=== PATIENT | male | born 1950 | race Caucasian/White ===

== ENCOUNTER 2018-05-14 18:15 | Inpatient (IN) ==
[2018-05-14 18:57] LABS: Basophils # 0.1 10*3/uL (0.0-0.2); Basophils % 0.4 % (0.0-0.8); Eosinophils # 0.2 10*3/uL (0.0-0.87); Eosinophils % 1.7 % (0.00-10.9); Hematocrit 46.8 VOL% (42.0-52.0); Hemoglobin 15.4 GM/DL (14.0-18.0); Immature Granulocytes % 0.4 %; Immature Granulocytes Absolute 0.06 #; Lymphocytes # 2.9 10*3/uL (1.4-4.0); Lymphocytes % 21.4 % (21.2-54.2); Mean Corpuscular HGB Conc 32.9 GM/DL (32-36); Mean Corpuscular Hemoglobin 28 PG (27-34); Mean Corpuscular Volume 85.4 FL (87-102); Mean Platelet Volume 10.5 FL (9.6-12.0); Monocytes # 1.1 10*3/uL (0.11-0.8); Monocytes % 7.8 % (1.7-12.7); Neutrophils # 9.4 10*3/uL (1.4-7.4); Neutrophils % 68.3 % (38.7-73.9); Platelet Count 363 T/CUMM (130-400); Red Blood Count 5.48 MC/CUMM (3.8-5.5); Red Cell Distribution Width 13.3 % (9.3-17.3); White Blood Count 13.7 T/CUMM (4-12)
[2018-05-14 19:05] LABS: INR 0.9; Partial Thromboplastin Time 26.4 SECS (0-40)
[2018-05-14 19:09] LABS: Alanine Aminotransferase 30 U/L (16-61); Albumin 3.8 G/DL (3.4-5.0); Alkaline Phosphatase 102 U/L (45-117); Aspartate Amino Transferase 14 U/L (0-37); Bilirubin,Total < 0.39 MG/DL (0.2-1.0); Blood Urea Nitrogen 27 MG/DL (7-18); Calcium 9.3 MG/DL (8.5-10.1); Glucose 240 MG/DL (74-106); Osmolality,Calculated 293.3 MOS/KG (273-304); Potassium 4.1 MMOL/L (3.5-5.1); Sodium 141 MMOL/L (136-145); Total Protein 7.9 G/DL (6.4-8.3)
[2018-05-14] MEDS ORDERED: ASPIRIN CHEW 81 MG TABLET PO STA (19:19)
[2018-05-14] MEDS ORDERED: ENOXAPARIN 30 MG/0.3 ML SYRINGE SUBCUT STA (19:19)
[2018-05-14] MEDS ORDERED: diphenhydrAMINE CAP 25 MG CAPSULE PO PRN (19:40)
[2018-05-14] MEDS ORDERED: NICOTINE 21 MG/24 HR PATCH TRANSDERM PRN (19:40)
[2018-05-14] MEDS ORDERED: ONDANSETRON 4 MG/2 ML VIAL IV PRN (19:40)
[2018-05-14] MEDS ORDERED: MORPHINE 4 MG/1 ML VIAL IV PRN (19:40)
[2018-05-14] MEDS ORDERED: ACETAMINOPHEN 325 MG TABLET PO PRN (19:40)
[2018-05-14] MEDS ORDERED: BISACODYL 5 MG TABLET PO PRN (19:40)
[2018-05-14 20:10] LABS: VLDL CHOLESTEROL 48.8 MG/DL
[2018-05-14] MEDS ORDERED: ENOXAPARIN 40 MG/0.4 ML SYRINGE ONE (20:38)
[2018-05-14] MEDS ORDERED: GLUCAGON 1 MG VIAL IM PRN (20:50)
[2018-05-14] MEDS ORDERED: DEXTROSE 50% 25 GM/50 ML VIAL IV PRN (20:50)
[2018-05-15] MEDS: INSULIN REGULAR 100 UNIT/ML SUBCUT SCH ×7 (00:49→21:07)
[2018-05-15] MEDS: INSULIN GLARGINE 100 UNIT/ML SUBCUT SCH ×2 (01:26→20:54)
[2018-05-15 03:04] LABS: Apearance,Urine CLEAR (Clear); Bilirubin,Urine Negative (Negative); Blood, Urine Negative (Negative); Glucose,Urine (UA) Negative (Negative); Ketones,Urine Negative (Negative); Mucus,Urine Occasional /LPF (Occasional); Nitrite,Urine Negative (Negative); Protein,Urine Negative; RBC,Urine <1 /HPF (0-4); Squamous Epithelial Cell,Urine Occasional /HPF (0-10); Urine Color Yellow (Yellow); Urine Specific Gravity 1.028 (1.001-1.035); Urine Urobilinogen < 2.0 EU/DL (0.2-1.0); WBC,Urine <1 /HPF (0-6)
[2018-05-15 04:28] LABS: Basophils # 0.1 10*3/uL (0.0-0.2); Basophils % 0.4 % (0.0-0.8); Eosinophils # 0.3 10*3/uL (0.0-0.87); Eosinophils % 2.3 % (0.00-10.9); Hematocrit 43.5 VOL% (42.0-52.0); Hemoglobin 14.1 GM/DL (14.0-18.0); Immature Granulocytes % 0.4 %; Immature Granulocytes Absolute 0.05 #; Lymphocytes # 2.9 10*3/uL (1.4-4.0); Lymphocytes % 22.2 % (21.2-54.2); Mean Corpuscular HGB Conc 32.4 GM/DL (32-36); Mean Corpuscular Hemoglobin 28 PG (27-34); Mean Corpuscular Volume 86.5 FL (87-102); Mean Platelet Volume 10.7 FL (9.6-12.0); Monocytes # 1.2 10*3/uL (0.11-0.8); Monocytes % 9.3 % (1.7-12.7); Neutrophils # 8.4 10*3/uL (1.4-7.4); Neutrophils % 65.4 % (38.7-73.9); Platelet Count 342 T/CUMM (130-400); Red Blood Count 5.03 MC/CUMM (3.8-5.5); Red Cell Distribution Width 13.4 % (9.3-17.3); White Blood Count 12.9 T/CUMM (4-12)
[2018-05-15 04:57] LABS: Albumin 3.3 G/DL (3.4-5.0); Bilirubin,Total 0.8 MG/DL (0.2-1.0); Calcium 8.7 MG/DL (8.5-10.1); Osmolality,Calculated 298.8 MOS/KG (273-304); Potassium 3.8 MMOL/L (3.5-5.1); Total Protein 7.2 G/DL (6.4-8.3)
[2018-05-15] MEDS: LEVOTHYROXINE 200 MCG TABLET PO SCH (06:33)
[2018-05-15] MEDS ORDERED: PANTOPRAZOLE 40 MG TABLET PO SCH (09:00)
[2018-05-15] MEDS ORDERED: ASPIRIN EC 81 MG TABLET PO SCH (09:00)
[2018-05-15] MEDS ORDERED: MELOXICAM 7.5 MG TABLET PO SCH (09:00)
[2018-05-15] MEDS ORDERED: PRAVASTATIN 20 MG TABLET PO SCH (09:00)
[2018-05-15] MEDS: LISINOPRIL/HCTZ 20-12.5 MG TABLET PO SCH (10:32)
[2018-05-15] MEDS: ASPIRIN 300 MG SUPP RECTAL SCH (10:33)
[2018-05-15] MEDS: CLOPIDOGREL 75 MG TABLET PO SCH (16:13)
[2018-05-15] MEDS: SODIUM CHLORIDE 0.45% 1,000 ML IV SCH (16:14)
[2018-05-15] MEDS: ATORVASTATIN 40 MG TABLET PO SCH (20:57)
[2018-05-15] MEDS: ENOXAPARIN 40 MG/0.4 ML SYRINGE SUBCUT SCH (20:57)
[2018-05-16] MEDS: INSULIN REGULAR 100 UNIT/ML SUBCUT SCH ×6 (01:58→21:13)
[2018-05-16] MEDS: SODIUM CHLORIDE 0.45% 1,000 ML IV SCH ×2 (04:40→19:13)
[2018-05-16] MEDS: LEVOTHYROXINE 200 MCG TABLET PO SCH (06:37)
[2018-05-16] MEDS: CLOPIDOGREL 75 MG TABLET PO SCH (09:49)
[2018-05-16] MEDS: ASPIRIN CHEW 81 MG TABLET PO SCH (09:49)
[2018-05-16] MEDS: LISINOPRIL/HCTZ 20-12.5 MG TABLET PO SCH (09:50)
[2018-05-16 10:56] LABS: Calcium 9.1 MG/DL (8.5-10.1); Osmolality,Calculated 290.1 MOS/KG (273-304)
[2018-05-16] MEDS: ASPIRIN 300 MG SUPP RECTAL SCH (11:04)
[2018-05-16] MEDS: INSULIN GLARGINE 100 UNIT/ML SUBCUT SCH (21:12)
[2018-05-16] MEDS: ATORVASTATIN 40 MG TABLET PO SCH (21:14)
[2018-05-16] MEDS: ENOXAPARIN 40 MG/0.4 ML SYRINGE SUBCUT SCH (21:14)
[2018-05-17] MEDS: INSULIN REGULAR 100 UNIT/ML SUBCUT SCH ×4 (00:41→12:21)
[2018-05-17] MEDS: LEVOTHYROXINE 200 MCG TABLET PO SCH (06:49)
[2018-05-17] MEDS: SODIUM CHLORIDE 0.45% 1,000 ML IV SCH (06:50)
[2018-05-17] MEDS: ASPIRIN CHEW 81 MG TABLET PO SCH (10:17)
[2018-05-17] MEDS: CLOPIDOGREL 75 MG TABLET PO SCH (10:17)
[2018-05-17] MEDS: LISINOPRIL/HCTZ 20-12.5 MG TABLET PO SCH (10:17)
[2018-05-17 12:55] VITALS: BP 131/71
== END 2018-05-17 14:20 | DRG 65 ==
LOC: N.ED 18:15 → N.EDINP 19:40 → N.5E 20:12
PROVIDERS: ADMIT Internal Medicine; ATTEND Internal Medicine

== ENCOUNTER 2018-11-09 10:28 | Inpatient (IN) ==
[2018-11-09] MEDS ORDERED: SODIUM CHLORIDE 0.9% 1,000 ML IV STA ×2 (10:57→11:37)
[2018-11-09 11:18] LABS: Basophils # 0.1 10*3/uL (0.0-0.2); Basophils % 0.3 % (0.0-0.8); Eosinophils # 0.2 10*3/uL (0.0-0.87); Eosinophils % 0.5 % (0.00-10.9); Hematocrit 44.9 VOL% (42.0-52.0); Hemoglobin 14.8 GM/DL (14.0-18.0); Immature Granulocytes % 0.5 %; Immature Granulocytes Absolute 0.15 #; Lymphocytes # 5.6 10*3/uL (1.4-4.0); Mean Platelet Volume 11.1 FL (9.6-12.0); Monocytes % 4.3 % (1.7-12.7); Neutrophils % 77.4 % (38.7-73.9); Platelet Count 505 T/CUMM (130-400); Red Blood Count 5.22 MC/CUMM (3.8-5.5); Red Cell Distribution Width 13.4 % (9.3-17.3); White Blood Count 32.7 T/CUMM (4-12)
[2018-11-09] MEDS ORDERED: PIPERACILLIN/TAZOBACTAM 3,375 MG in SODIUM CHLORIDE 0.9% 100 ML IV STA (11:29)
[2018-11-09 11:34] LABS: Albumin 4.1 G/DL (3.4-5.0); Bilirubin,Total 0.6 MG/DL (0.2-1.0); Calcium 10.2 MG/DL (8.5-10.1); Osmolality,Calculated 286.3 MOS/KG (273-304); Total Protein 7.2 G/DL (6.4-8.3)
[2018-11-09 11:39] LABS: Lymphocytes 18 % (20-55); Segmented Neutrophils 80 % (50-85); Total Cells Counted 100
[2018-11-09 11:40] LABS: Hypochromasia 1+; Microcytosis Slight
[2018-11-09 11:45] LABS: Apearance,Urine Slightly Hazy (Clear); Bilirubin,Urine Negative (Negative); Blood, Urine Negative (Negative); Glucose,Urine (UA) Negative (Negative); Hyaline Casts,Urine 1 /LPF (0-3); Ketones,Urine Negative (Negative); Mucus,Urine Occasional /LPF (Occasional); Nitrite,Urine Negative (Negative); Protein,Urine Negative; RBC,Urine 7 /HPF (0-4); Squamous Epithelial Cell,Urine Occasional /HPF (0-10); Urine Color Yellow (Yellow); Urine Specific Gravity 1.012 (1.001-1.035); Urine Urobilinogen < 2.0 EU/DL (0.2-1.0); WBC,Urine 2 /HPF (0-6)
[2018-11-09] MEDS ORDERED: MORPHINE 4 MG/1 ML VIAL IV PRN (12:49)
[2018-11-09] MEDS ORDERED: ONDANSETRON 4 MG/2 ML VIAL IV PRN (12:49)
[2018-11-09] MEDS ORDERED: LEVOFLOXACIN INJ 750 MG in PREMIX 1 EACH IV SCH (13:00)
[2018-11-09] MEDS ORDERED: ENOXAPARIN 30 MG/0.3 ML SYRINGE SUBCUT SCH (13:00)
[2018-11-09] MEDS: LACTATED RINGERS 1,000 ML IV SCH ×2 (13:45→21:34)
[2018-11-09] MEDS: FAMOTIDINE 20 MG/2 ML VIAL IV SCH (13:47)
[2018-11-09] MEDS: MEROPENEM 1,000 MG in SODIUM CHLORIDE 0.9% 100 ML IV SCH (17:21)
[2018-11-10] MEDS ORDERED: DEXTROSE 50% 25 GM/50 ML SYRINGE IV ONE (00:41)
[2018-11-10] MEDS: FAMOTIDINE 20 MG/2 ML VIAL IV SCH ×2 (00:56→14:06)
[2018-11-10] MEDS: MEROPENEM 1,000 MG in SODIUM CHLORIDE 0.9% 100 ML IV SCH ×3 (00:56→17:23)
[2018-11-10] MEDS ORDERED: DEXTROSE 50% 25 GM/50 ML SYRINGE IV PRN (01:05)
[2018-11-10] MEDS ORDERED: GLUCAGON 1 MG VIAL IM PRN (01:05)
[2018-11-10 04:30] LABS: ABG Base Excess -1.2 MMOL/L (-2.5-2.5); ABG HCO3 23.4 MMOL/L (20-26); ABG Oxygen Saturation 98.2 % (95-100); ABG PCO2 31.3 MM HG (35-48); ABG PH 7.452 (7.35-7.45); ABG TCO2 19.3 MMOL/L (23-27); Allen Test Positive
[2018-11-10 05:26] LABS: Basophils % 0.3 % (0.0-0.8); Eosinophils # 0.1 10*3/uL (0.0-0.87); Eosinophils % 0.9 % (0.00-10.9); Hematocrit 36.7 VOL% (42.0-52.0); Hemoglobin 12.2 GM/DL (14.0-18.0); Immature Granulocytes % 0.3 %; Immature Granulocytes Absolute 0.05 #; Lymphocytes # 3.2 10*3/uL (1.4-4.0); Lymphocytes % 20.3 % (21.2-54.2); Mean Corpuscular HGB Conc 33.2 GM/DL (32-36); Mean Platelet Volume 11.1 FL (9.6-12.0); Monocytes % 8.4 % (1.7-12.7); Neutrophils % 69.8 % (38.7-73.9); Platelet Count 312 T/CUMM (130-400); Red Blood Count 4.37 MC/CUMM (3.8-5.5); Red Cell Distribution Width 13.5 % (9.3-17.3); White Blood Count 15.7 T/CUMM (4-12)
[2018-11-10] MEDS: LACTATED RINGERS 1,000 ML IV SCH (05:45)
[2018-11-10 05:54] LABS: Risk Ratio 2.21; Thyroid Stimulating Hormone 0.117 uIU/ml (0.358-3.74); VLDL CHOLESTEROL 15.6 MG/DL
[2018-11-10 06:04] LABS: Albumin 2.9 G/DL (3.4-5.0); Bilirubin,Total 0.4 MG/DL (0.2-1.0); Osmolality,Calculated 285.8 MOS/KG (273-304); Total Protein 5.9 G/DL (6.4-8.3); Troponin I 0.019 NG/ML (0.00-0.045)
[2018-11-10] MEDS: ASPIRIN CHEW 81 MG TABLET PO SCH (10:04)
[2018-11-10] MEDS: DEXTROSE 5% LACTATED RINGERS 1,000 ML IV SCH ×2 (10:12→20:15)
[2018-11-10] MEDS: LEVOFLOXACIN 750 MG TABLET PEG SCH (14:03)
[2018-11-10] MEDS: ENOXAPARIN 40 MG/0.4 ML SYRINGE SUBCUT SCH (14:04)
[2018-11-10] MEDS: amLODIPine 2.5 MG TABLET PO SCH (20:15)
[2018-11-10] MEDS: CLOPIDOGREL 75 MG TABLET PO SCH (20:15)
[2018-11-11] MEDS: FAMOTIDINE 20 MG/2 ML VIAL IV SCH ×2 (00:58→12:53)
[2018-11-11] MEDS: MEROPENEM 1,000 MG in SODIUM CHLORIDE 0.9% 100 ML IV SCH ×3 (01:02→16:37)
[2018-11-11 05:44] LABS: Basophils % 0.3 % (0.0-0.8); Eosinophils # 0.6 10*3/uL (0.0-0.87); Eosinophils % 4.2 % (0.00-10.9); Hematocrit 35.2 VOL% (42.0-52.0); Hemoglobin 11.7 GM/DL (14.0-18.0); Immature Granulocytes % 0.3 %; Immature Granulocytes Absolute 0.04 #; Lymphocytes # 2.7 10*3/uL (1.4-4.0); Lymphocytes % 20.6 % (21.2-54.2); Mean Corpuscular HGB Conc 33.2 GM/DL (32-36); Mean Corpuscular Volume 84.8 FL (87-102); Mean Platelet Volume 11.6 FL (9.6-12.0); Monocytes % 9.1 % (1.7-12.7); Neutrophils % 65.5 % (38.7-73.9); Platelet Count 292 T/CUMM (130-400); Red Blood Count 4.15 MC/CUMM (3.8-5.5); Red Cell Distribution Width 13.8 % (9.3-17.3); White Blood Count 13.2 T/CUMM (4-12)
[2018-11-11 05:58] LABS: Calcium 8.5 MG/DL (8.5-10.1)
[2018-11-11 06:02] LABS: Prealbumin 12.4 MG/DL (20-40)
[2018-11-11] MEDS ORDERED: LEVOTHYROXINE 125 MCG TABLET PO SCH ×2 (07:00→12:03)
[2018-11-11] MEDS: DEXTROSE 5% LACTATED RINGERS 1,000 ML IV SCH (07:37)
[2018-11-11] MEDS: LEVOFLOXACIN 750 MG TABLET PEG SCH (09:46)
[2018-11-11] MEDS: ASPIRIN CHEW 81 MG TABLET PO SCH (09:46)
[2018-11-11] MEDS ORDERED: DEXTROSE 50% 25 GM/50 ML VIAL IV PRN (12:07)
[2018-11-11] MEDS: ENOXAPARIN 40 MG/0.4 ML SYRINGE SUBCUT SCH (12:53)
[2018-11-11] MEDS: CLOPIDOGREL 75 MG TABLET PO SCH (21:33)
[2018-11-11] MEDS: amLODIPine 2.5 MG TABLET PO SCH (21:33)
[2018-11-11] MEDS: INSULIN GLARGINE 100 UNIT/ML SUBCUT SCH (21:33)
[2018-11-12] MEDS: MEROPENEM 1,000 MG in SODIUM CHLORIDE 0.9% 100 ML IV SCH ×3 (01:55→17:00)
[2018-11-12] MEDS: FAMOTIDINE 20 MG/2 ML VIAL IV SCH ×2 (01:55→13:42)
[2018-11-12] MEDS: LEVOTHYROXINE 100 MCG TABLET PO SCH (06:33)
[2018-11-12] MEDS: LEVOFLOXACIN 750 MG TABLET PEG SCH (09:52)
[2018-11-12] MEDS: ASPIRIN CHEW 81 MG TABLET PO SCH (09:52)
[2018-11-12] MEDS: ENOXAPARIN 40 MG/0.4 ML SYRINGE SUBCUT SCH (13:42)
[2018-11-12] MEDS: amLODIPine 2.5 MG TABLET PO SCH (21:57)
[2018-11-12] MEDS: CLOPIDOGREL 75 MG TABLET PO SCH (21:57)
[2018-11-12] MEDS: INSULIN GLARGINE 100 UNIT/ML SUBCUT SCH (21:58)
[2018-11-13] MEDS: MEROPENEM 1,000 MG in SODIUM CHLORIDE 0.9% 100 ML IV SCH ×2 (01:45→09:55)
[2018-11-13] MEDS: FAMOTIDINE 20 MG/2 ML VIAL IV SCH ×2 (01:48→14:50)
[2018-11-13] MEDS: LEVOTHYROXINE 100 MCG TABLET PO SCH (06:04)
[2018-11-13 08:52] LABS: Basophils # 0.1 10*3/uL (0.0-0.2); Basophils % 0.4 % (0.0-0.8); Eosinophils # 1.2 10*3/uL (0.0-0.87); Eosinophils % 9.1 % (0.00-10.9); Hematocrit 39.1 VOL% (42.0-52.0); Hemoglobin 12.6 GM/DL (14.0-18.0); Immature Granulocytes % 0.4 %; Immature Granulocytes Absolute 0.05 #; Lymphocytes % 23.1 % (21.2-54.2); Mean Corpuscular HGB Conc 32.2 GM/DL (32-36); Mean Corpuscular Volume 86.7 FL (87-102); Mean Platelet Volume 11.6 FL (9.6-12.0); Platelet Count 301 T/CUMM (130-400); Red Blood Count 4.51 MC/CUMM (3.8-5.5); Red Cell Distribution Width 13.8 % (9.3-17.3); White Blood Count 13.2 T/CUMM (4-12)
[2018-11-13 08:59] LABS: Osmolality,Calculated 282.4 MOS/KG (273-304)
[2018-11-13] MEDS: LEVOFLOXACIN 750 MG TABLET PEG SCH (09:55)
[2018-11-13] MEDS: ASPIRIN CHEW 81 MG TABLET PO SCH (09:55)
[2018-11-13] MEDS: ENOXAPARIN 40 MG/0.4 ML SYRINGE SUBCUT SCH (14:50)
[2018-11-13] MEDS: AMPICILLIN/SULBACTAM 1,500 MG in SODIUM CHLORIDE 0.9% 100 ML IV SCH ×2 (14:53→21:53)
[2018-11-13] MEDS: INSULIN GLARGINE 100 UNIT/ML SUBCUT SCH (21:53)
[2018-11-13] MEDS: amLODIPine 2.5 MG TABLET PO SCH (21:53)
[2018-11-13] MEDS: CLOPIDOGREL 75 MG TABLET PO SCH (21:53)
[2018-11-14] MEDS: FAMOTIDINE 20 MG/2 ML VIAL IV SCH ×2 (01:30→13:10)
[2018-11-14] MEDS: AMPICILLIN/SULBACTAM 1,500 MG in SODIUM CHLORIDE 0.9% 100 ML IV SCH ×2 (04:15→09:08)
[2018-11-14 05:55] LABS: Calcium 9.2 MG/DL (8.5-10.1); Osmolality,Calculated 284.4 MOS/KG (273-304); Prealbumin 21.2 MG/DL (20-40)
[2018-11-14] MEDS: LEVOTHYROXINE 100 MCG TABLET PO SCH (06:50)
[2018-11-14] MEDS: ASPIRIN CHEW 81 MG TABLET PO SCH (09:08)
[2018-11-14] MEDS: LEVOFLOXACIN 750 MG TABLET PEG SCH (09:08)
[2018-11-14] MEDS: ENOXAPARIN 40 MG/0.4 ML SYRINGE SUBCUT SCH (13:10)
[2018-11-14 13:56] VITALS: BP 107/70
== END 2018-11-14 15:07 | disposition home or self-care (01) | DRG 178 ==
LOC: N.ED 10:28 → SUATTDRO 12:12 → N.EDINP 12:12 → N.CC 14:15 → N.5E 11-10 22:43
PROVIDERS: ADMIT Internal Medicine; ATTEND Internal Medicine